=== PATIENT | male | born 1935 | race Caucasian/White ===

== ENCOUNTER 2017-12-17 07:58 | Day surgery (SDC) | payer OTHER ==
[~2017-12-17] VITALS: Ht 167.6 cm; Wt 81.2 kg
[~2017-12-17 07:58] MED LIST: ACYCLOVIR800 MG PO; CELEBREX200 MG PO; COZ25 PO; DILAUDID8 MG PO; FERROUS SULFAT325 M2 PO; FLO4 PO; GLIPIZIDE10 MG PO; GLU5 PO; LIDOCAINE TP; NEU300 PO; NEXIUM40 MG PO; NOVOLOG100 U/ML SC; OXYCONTIN60 MG PO; PREDNISONE20 MG PO; ROB750 PO; TRESIBA INSULIN SC; VITAMIN C500 M2 PO
[2017-12-17 08:28] VITALS: BP 175/87
[2017-12-17 12:01] VITALS: BP 122/67
== END 2017-12-17 13:20 | disposition home or self-care (01) ==
LOC: GI 07:58 → OR 08:30 → GI 08:30
PROVIDERS: Internal Medicine
PROC: 0DBL8ZZ Excision of Transverse Colon, Via Natural or Artificial Opening Endoscopic (ICD-10-PCS; 2017-12-17)
PROC: 0DB68ZX Excision of Stomach, Via Natural or Artificial Opening Endoscopic, Diagnostic (ICD-10-PCS; principal; 2017-12-17 09:00)
PROC: 0DBN8ZZ Excision of Sigmoid Colon, Via Natural or Artificial Opening Endoscopic (ICD-10-PCS; 2017-12-17 09:00)
DX: K29.71 Gastritis, unspecified, with bleeding (principal); K64.8 Other hemorrhoids; D12.3 Benign neoplasm of transverse colon; K63.5 Polyp of colon; K64.0 First degree hemorrhoids; I10 Essential (primary) hypertension; E11.9 Type 2 diabetes mellitus without complications; Z68.28 Body mass index [BMI] 28.0-28.9, adult
CPT/HCPCS: 43235; 45378; J1200; J1610; J2250; J2310; J2405; J3010; J3490

== ENCOUNTER 2017-12-20 17:47 | Emergency (ER) | payer OTHER, BC ==
[~2017-12-20] VITALS: Ht 170.2 cm; Wt 79.8 kg
[2017-12-20 18:02] VITALS: Ht 170.2 cm; Wt 79.8 kg
[2017-12-20 20:08] VITALS: BP 157/90
== END 2017-12-20 20:08 | disposition home or self-care (01) ==
LOC: ED 17:47
DX: K59.03 Drug induced constipation (principal); T40.2X5A Adverse effect of other opioids, initial encounter; E11.9 Type 2 diabetes mellitus without complications; K21.9 Gastro-esophageal reflux disease without esophagitis; Y92.89 Other specified places as the place of occurrence of the external cause
CPT/HCPCS: J0780

== ENCOUNTER → 2018-06-18 | Day surgery (SDC) | payer OTHER, BC ==
[2018-06-17 14:56] LABS: microscopic required? NO
[2018-06-17 15:00] LABS: urine erythrocyte NEGATIVE (NEGATIVE)
[2018-06-17 15:15] LABS: CALCIUM 10.1 mg/dL (8.5-10.1); CARBON DIOXIDE 32.9 mmol/L (21-32); CHLORIDE SERUM 106 mmol/L (98-107); CREATININE SERUM 0.8 mg/dL (0.7-1.3); GLUCOSE SERUM 98 mg/dL (74-106); POTASSIUM SERUM 4.2 mmol/L (3.5-5.1); SODIUM SERUM 139 mmol/L (136-145)
[2018-06-17 15:17] LABS: BASOPHIL % 0.2 % (0-2); PLATELET COUNT 184 x10^3mcL (130-400); RED CELL DISTRIBUTION WIDTH 14.3 % (11.5-14.5)
[~2018-06-18] VITALS: Ht 170.2 cm; Wt 79.4 kg
[2018-06-18 07:06] VITALS: BP 177/78
[2018-06-18 13:55] VITALS: BP 149/81
== END | disposition home or self-care (01) ==
LOC: DS 06:29 → OR 07:30
PROVIDERS: Ophthalmology
PROC: 08RJ3JZ Replacement of Right Lens with Synthetic Substitute, Percutaneous Approach (ICD-10-PCS; principal; 2018-06-18 07:30)
DX: H25.11 Age-related nuclear cataract, right eye (principal); I10 Essential (primary) hypertension; E11.9 Type 2 diabetes mellitus without complications; G89.29 Other chronic pain; M54.9 Dorsalgia, unspecified
CPT/HCPCS: 82962; C1780; J2001; J2405; J2704; J3010; J3490; J7040